=== PATIENT | female | born 1960 | race Caucasian/White ===

== ENCOUNTER → 2016-11-08 | Outpatient (CLI) | payer BC ==
[2016-11-08 19:03] LABS: HEMOGLOBIN 13.1 gm/dl (12.3-15.3); RED BLOOD COUNT 4.58 M/UL (4.00-5.10); WHITE BLOOD COUNT 5.6 K/UL (4.5-11.0)
[2016-11-08 19:24] LABS: BUN/CREATININE RATIO 18 (0-10)
== END ==
LOC: EROP 16:16
PROVIDERS: Nurse Practitioner
DX: Z00.01 Encounter for general adult medical examination with abnormal findings (principal)
CPT/HCPCS: 80053; 82670; 84403; 84436; 84443; 84480; 85027

== ENCOUNTER → 2021-04-30 | Outpatient (CLI) | payer BC | LOC: MAMO 09:00 | DX: Z12.31 Encounter for screening mammogram for malignant neoplasm of breast (principal) | CPT/HCPCS: 77063; 77067 ==

== ENCOUNTER → 2021-09-10 | Outpatient (CLI) | payer BC | LOC: HEART 5 09:00 | DX: I34.1 Nonrheumatic mitral (valve) prolapse (principal) | CPT/HCPCS: 78452; 93306; A9502 ==